=== PATIENT | male | born 1970 | race Two or more races ===

== ENCOUNTER 2016-09-30 09:51 | Emergency (ER) | payer SELFPAY ==
[~2016-09-30] VITALS: Ht 167.6 cm; Wt 61.4 kg
[2016-09-30] MEDS ORDERED: SODIUM CHLORIDE FLUSH 10ML SYR IVF ONE (11:30)
[2016-09-30] MEDS ORDERED: ONDANSETRON 2MG/ML, 2ML IVPush ONE (11:30)
[2016-09-30] MEDS ORDERED: SODIUM CHLORIDE 0.9% 1,000ML IVBOLUS ONE (11:30)
[2016-09-30] MEDS ORDERED: ONDANSETRON 2MG/ML, 2ML ONE (11:38)
[2016-09-30 11:58] LABS: BLOOD UREA NITROGEN 20 mg/dL (7-18)
[2016-09-30 12:00] LABS: ASPARTATE AMINO TRANSFERASE 16 U/L (15-37)
[2016-09-30 12:03] LABS: FIO2 ROOM AIR %; PH, VENOUS 7.482 pH (7.320-7.420)
[2016-09-30 13:17] VITALS: BP 138/78
== END 2016-09-30 13:20 | disposition home or self-care (01) ==
LOC: ED 13:00
DX: R51 Headache (principal); E11.65 Type 2 diabetes mellitus with hyperglycemia; I10 Essential (primary) hypertension; Z87.891 Personal history of nicotine dependence
CPT/HCPCS: 36415; 70450; 80053; 81003; 82010; 82803; 82962; 83690; 84484; 85025; 93005; 96361; 96374; 99285; J2405; J7030